=== PATIENT | male | born 1965 | race Caucasian/White ===

== ENCOUNTER 2020-12-13 08:04 | Emergency (ER) | payer MEDICAID ==
[~2020-12-13] VITALS: Ht 195.6 cm; Wt 114.0 kg
[~2020-12-13 08:04] MED LIST: ACET500T64 PO; ALPR1TAB2 PO; BUTA1CAP30 PO; CYMBALTA PO; DIAZ10TA PO; DIAZ2TAB PO; DIAZ5TAB PO; DICL100G19 TD; DICL100G19 TP; DOCU-131 PO; HYDR-3248 PO; IBUP-1902 PO; METH750T87 PO; MORP30TA PO; MORP30TA81 PO; OXYC-380 PO; OXYC1TAB17 PO; OXYC5TAB98 PO; PRAV10TA2 PO; PREG100C; PROM25TA10 PO; TAMS-11 PO; [UNRECOGNIZED DRUG - REMARK] PO
--- NOTE | 2020-12-13 08:24 | NUR ---
patient arrives with rectal bleeding he states for a week. he states on eliquis for afib and four dvt's in past.
--- NOTE | 2020-12-13 08:29 | NUR ---
patient frustrated with situation. states now that his rectal bleeding is for three months not this week.
[2020-12-13] MEDS ORDERED: PANTOPRAZOLE 40 MG IV IVPush SCH (09:00)
[2020-12-13] MEDS ORDERED: SODIUM CHLORIDE FLUSH 10ML SYR IVF ONE (09:00)
[2020-12-13] MEDS ORDERED: PANTOPRAZOLE 80 MG in SODIUM CHLORIDE 0.9% 50 ML IV ONE (09:00)
--- NOTE | 2020-12-13 09:13 | NUR ---
patient now 81 hr, will let md know. trying with helmi to get iv, patient hx of and is very difficult to get iv access, using ultraound
[2020-12-13 09:16] LABS: BASOPHILS % (AUTO) 1 % (0-1); EOSINOPHILS % (AUTO) 2 % (1-7); LYMPHOCYTES % (AUTO) 17 % (22-44); MEAN CORPUSCULAR HEMOGLOBIN 32.5 pg (27.5-34.5); MEAN CORPUSCULAR HGB CONC 33.8 g/dL (33.2-36.2); MEAN PLATELET VOLUME 7.5 fL (7.4-10.4); MONOCYTES % (AUTO) 7 % (2-9); NEUTROPHILS % (AUTO) 73 % (42-75); PLATELET COUNT 194 x10^3/uL (130-400); RED BLOOD COUNT 4.61 x10^6/uL (4.38-5.82); RED CELL DISTRIBUTION WIDTH 14.7 % (9.4-14.8)
[2020-12-13 09:17] LABS: MD NO
[2020-12-13 09:23] LABS: ALANINE AMINOTRANSFERASE 20 U/L (12-78); ALBUMIN 3.8 g/dL (3.4-5.0); ANION GAP 6 mmol/L (5-15); CALCIUM 8.9 mg/dL (8.5-10.1); CHLORIDE 110 mmol/L (98-107)
[2020-12-13 09:26] LABS: ALKALINE PHOSPHATASE 95 U/L (45-117); BILIRUBIN,TOTAL 0.9 mg/dL (0.2-1.0); CREATININE 0.94 mg/dL (0.7-1.3)
[2020-12-13 10:37] VITALS: BP 110/65
--- NOTE | 2020-12-13 10:38 | NUR ---
discharge reviewed. shows understanding
== END 2020-12-13 10:39 | disposition home or self-care (01) ==
LOC: ED 09:04
DX: K62.5 Hemorrhage of anus and rectum (principal); I48.91 Unspecified atrial fibrillation; J44.9 Chronic obstructive pulmonary disease, unspecified; F17.290 Nicotine dependence, other tobacco product, uncomplicated; Z79.01 Long term (current) use of anticoagulants; Z86.718 Personal history of other venous thrombosis and embolism; Z88.8 Allergy status to other drugs, medicaments and biological substances
CPT/HCPCS: 36415; 80053; 83690; 85025; 86850; 86900; 96365; 99284; C9113; 86902

== ENCOUNTER 2020-12-31 15:09 | Emergency (ER) | payer MEDICAID ==
[~2020-12-31] VITALS: Ht 195.6 cm; Wt 109.0 kg
[2020-12-31] MEDS ORDERED: DICL100G29 TP (15:24)
[2020-12-31] MEDS ORDERED: ATOR40TA78 PO (15:24)
[2020-12-31] MEDS ORDERED: HYDR-1067 PO (15:24)
[2020-12-31] MEDS ORDERED: IPRA4AER PO (15:24)
[2020-12-31] MEDS ORDERED: APIX5TAB PO ×2 (15:24→15:25)
[2020-12-31] MEDS ORDERED: METO25TA35 PO (15:25)
--- NOTE | 2020-12-31 15:25 | NUR ---
PT STATES HE SAW HIS CAN RECONDITIONER ON TUESDAY. STATES AFIB WORSENED ON TUESDAY. "I KEEP GOING IN AN OUT OF AFIB". DENIES PAIN. PT HAS ANGRY ATTITUDE. MATERIAL SCHEDULER: A-FIB RATE 78-92. PT STATES HE'S ABLE TO WALK SHORT DISTANCES W/ CANE (CANE IN ROOM); STATES HE HAS A WC AT HOME.
--- NOTE | 2020-12-31 15:35 | NUR ---
MATHEUS PADILLA AT BS FOR EXAM.
--- NOTE | 2020-12-31 16:15 | NUR ---
CXR DONE. LAB AT BS
[2020-12-31 16:34] LABS: BASOPHILS % (AUTO) 1 % (0-1); EOSINOPHILS % (AUTO) 4 % (1-7); LYMPHOCYTES % (AUTO) 22 % (22-44); MEAN CORPUSCULAR HEMOGLOBIN 32.9 pg (27.5-34.5); MEAN CORPUSCULAR HGB CONC 34.3 g/dL (33.2-36.2); MEAN PLATELET VOLUME 7.7 fL (7.4-10.4); MONOCYTES % (AUTO) 8 % (2-9); NEUTROPHILS % (AUTO) 65 % (42-75); PLATELET COUNT 168 x10^3/uL (130-400); RED BLOOD COUNT 4.72 x10^6/uL (4.38-5.82); RED CELL DISTRIBUTION WIDTH 14.7 % (9.4-14.8)
[2020-12-31 16:35] LABS: MD NO
[2020-12-31 16:42] LABS: ALBUMIN 3.6 g/dL (3.4-5.0); ANION GAP 3 mmol/L (5-15); CALCIUM 8.4 mg/dL (8.5-10.1); CHLORIDE 113 mmol/L (98-107)
--- NOTE | 2020-12-31 16:43 | NUR ---
PT ENDORSED TO BREAK RN. AWAITING TEST RESULTS
[2020-12-31 16:55] VITALS: BP 103/56
[2020-12-31 16:57] LABS: ALANINE AMINOTRANSFERASE 35 U/L (12-78); ALKALINE PHOSPHATASE 91 U/L (45-117); BILIRUBIN,TOTAL 0.8 mg/dL (0.2-1.0); CREATININE 0.93 mg/dL (0.7-1.3); TOTAL PROTEIN 6.8 g/dL (6.4-8.2); TROPONIN I < 0.015 ng/mL (0.000-0.045)
--- NOTE | 2020-12-31 17:25 | NUR ---
PT REPORT FROM VISHAL WALLACE RN. PT CARE TO BE RESUMED.
--- NOTE | 2020-12-31 18:09 | NUR ---
PT AMBULATORY TO [facility] W/OUT INCIDENT: LIMPING GAIT, USING OWN CANE
--- NOTE | 2020-12-31 18:15 | NUR ---
RETURNED TO ED ROOM W/OUT INCIDENT.
--- NOTE | 2020-12-31 18:20 | NUR ---
PT DRESSED AND WAITING FOR DC. AWAITING DC DOCUMENT FROM ERP.
--- NOTE | 2020-12-31 19:00 | NUR ---
PT DC'D PER JOY MAN. PT AMBULATORY W/ STEADY GAIT, USING OWN CANE
== END 2020-12-31 19:09 | disposition home or self-care (01) ==
LOC: ED 18:40
DX: I48.91 Unspecified atrial fibrillation (principal); R00.2 Palpitations; R07.89 Other chest pain; G89.29 Other chronic pain; J45.909 Unspecified asthma, uncomplicated; Z86.718 Personal history of other venous thrombosis and embolism
CPT/HCPCS: 36415; 71045; 80053; 84443; 84484; 85025; 93005; 99285